=== PATIENT | female | born 1995 | race American Indian/Alaskan Native ===

== ENCOUNTER 2018-09-23 12:00 | Emergency (ER) | payer SELFPAY ==
--- NOTE | 2018-09-23 12:14 | Emergency Department Report ---
Blank Doc - Documentation Documentation: This is a 23-year-old female that presents with left toe pain s/p wood falling on it. This initial assessment/diagnostic orders/clinical plan/treatment(s) is/are subject to change based on patient's health status, clinical progression and re- assessment by fellow clinical providers in the ED. Further treatment and workup at subsequent clinical providers discretion. Patient/guardians urged not to elope from the ED as their condition may be serious if not clinically assessed and managed. Initial orders include: 1- Patient sent to [facility] for further evaluation and treatment 2- xray
[2018-09-23 12:16] VITALS: BP 149/88
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
== END 2018-09-23 14:07 | disposition home or self-care (01) ==
LOC: ED 12:00
DX: S93.502A Unspecified sprain of left great toe, initial encounter (principal); G43.909 Migraine, unspecified, not intractable, without status migrainosus; W22.8XXA Striking against or struck by other objects, initial encounter; Y93.89 Activity, other specified; Y92.009 Unspecified place in unspecified non-institutional (private) residence as the place of occurrence of the external cause; Y99.8 Other external cause status

== ENCOUNTER 2018-10-27 08:17 | Emergency (ER) | payer SELFPAY ==
[2018-10-27 08:27] VITALS: BP 164/100
--- NOTE | 2018-10-27 10:19 | Emergency Department Report ---
ED Back Pain/Injury HPI - General Chief Complaint: Back Pain/Injury Stated Complaint: LOWER BACK/R LEG PAIN Time Seen by Provider: 10/27/18 09:38 Source: patient Limitations: No Limitations - History of Present Illness Initial Comments: 23-year-old female presents to ED with complaint of back pain 3-4 weeks. Patient states pain is worse on the right lower back, radiates down into the right leg. Patient reports some associated tingling in the right leg as well. 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 MD Complaint: back pain -: week(s) (3) Similar Symptoms Previously: No Radiation: right leg Severity: moderate Quality: sharp Consistency: intermittent Improves With: immobilization Worsens With: movement Context: unknown Associated Symptoms: denies: difficulty urinating, incontinence, fever/chills, abdominal pain, nausea/vomiting - Related Data Previous Rx's Medication Instructions Recorded Last Taken Type Ibuprofen [Motrin 600 MG tab] 600 mg PO Q8H PRN #20 tablet 09/23/18 Unknown Rx Naproxen [Naprosyn] 500 mg PO BID #20 tablet 10/27/18 Unknown Rx methOCARBAMOL [Robaxin TAB] 500 mg PO Q8HR PRN #20 tablet 10/27/18 Unknown Rx predniSONE [Deltasone] 50 mg PO QDAY #5 tab 10/27/18 Unknown Rx traMADol [Ultram] 50 mg PO Q6HR PRN #7 tablet 10/27/18 Unknown Rx Allergies Allergy/AdvReac Type Severity Reaction Status Date / Time No Known Allergies Allergy Verified 10/27/18 08:22 ED Review of Systems ROS: Stated complaint: LOWER BACK/R LEG PAIN Other details as noted in HPI Comment: All other systems reviewed and negative Constitutional: denies: chills, fever Gastrointestinal: denies: abdominal pain, nausea, vomiting Musculoskeletal: back pain Neurological: paresthesias ED Past Medical Hx - Past Medical History Hx Headaches / Migraines: Yes - Surgical History Additional Surgical History: C section - Social History Smoking Status: Never Smoker Substance Use Type: None - Medications Home Medications: Home Medications Medication Instructions Recorded Confirmed Last Taken Type Ibuprofen [Motrin 600 MG tab] 600 mg PO Q8H PRN #20 tablet 09/23/18 Unknown Rx Naproxen [Naprosyn] 500 mg PO BID #20 tablet 10/27/18 Unknown Rx methOCARBAMOL [Robaxin TAB] 500 mg PO Q8HR PRN #20 tablet 10/27/18 Unknown Rx predniSONE [Deltasone] 50 mg PO QDAY #5 tab 10/27/18 Unknown Rx traMADol [Ultram] 50 mg PO Q6HR PRN #7 tablet 10/27/18 Unknown Rx ED Physical Exam - General Limitations: No Limitations General appearance: alert, in no apparent distress, obese - Head Head exam: Present: atraumatic, normocephalic - Eye Eye exam: Present: normal appearance, PERRL, EOMI - ENT ENT exam: Present: mucous membranes moist - Neck Neck exam: Present: normal inspection - Respiratory Respiratory exam: Present: normal lung sounds bilaterally. Absent: respiratory distress - Cardiovascular Cardiovascular Exam: Present: regular rate, normal rhythm - GI/Abdominal GI/Abdominal exam: Present: soft. Absent: distended, tenderness - Extremities Exam Extremities exam: Present: normal inspection - Back Exam Back exam: Present: paraspinal tenderness (tenderness in right sciatic notch). Absent: vertebral tenderness - Neurological Exam Neurological exam: Present: alert, oriented X3, motor sensory deficit (paresthesias to right leg; strength 5/5). Absent: CN II-XII intact - Psychiatric Psychiatric exam: Present: normal affect, normal mood - Skin Skin exam: Present: warm, dry, intact, normal color ED Course Vital Signs 10/27/18 08:26 Temperature 98.8 F Pulse Rate 89 Respiratory 89 H Rate Blood Pressure 164/100 [Right] O2 Sat by Pulse 100 Oximetry Critical care attestation.: If time is entered above; I have spent that time in minutes in the direct care of this critically ill patient, excluding procedure time. ED Disposition Clinical Impression: Acute low back pain, Sciatica, right side Disposition: DC-01 TO HOME OR SELFCARE Is pt being admited?: No Condition: Stable Instructions: Sciatica (ED) Referrals: GONZALO BARRERA MD [Primary Care Provider] - 3-5 Days PETER REVELES MD [Staff Physician] - 3-5 Days Time of Disposition: 10:20
== END 2018-10-27 10:40 | disposition home or self-care (01) ==
LOC: ED 08:17
DX: M54.41 Lumbago with sciatica, right side (principal)
CPT/HCPCS: 99282

== ENCOUNTER 2018-11-24 17:43 | Emergency (ER) | payer SELFPAY ==
--- NOTE | 2018-11-24 17:59 | Event Note ---
ED Screening Note ED Screening Note: pt presents with sore throat for a week hurts to swallow states that she believes her lymph nodes are swollen +fever 101.4 at home no sick contacts This initial assessment/diagnostic orders/clinical plan/treatment(s) is/are subject to change based on patients health status, clinical progression and re- assessment by fellow clinical providers in the ED. Further treatment and workup at subsequent clinical providers discretion. Patient/guardian urged not to elope from the ED as their condition may be serious if not clinically assessed and managed. Initial orders include: rapid strep, monospot
[2018-11-24] MEDS ORDERED: DECADRON IM ONE (19:29)
[2018-11-24] MEDS ORDERED: LIDOCAINE VISCOUS 2% PO ONE (19:29)
[2018-11-24] MEDS ORDERED: TORADOL IM ONE (19:29)
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
[2018-11-24 21:14] VITALS: BP 151/82
== END 2018-11-24 21:13 | disposition home or self-care (01) ==
LOC: ED 17:43
DX: J02.9 Acute pharyngitis, unspecified (principal); R59.0 Localized enlarged lymph nodes; G43.909 Migraine, unspecified, not intractable, without status migrainosus; Z79.899 Other long term (current) drug therapy
CPT/HCPCS: 36415; 86308; 87116; 87430; 96372; 99283; J1100; J1885